=== PATIENT | female | born 1985 | race Caucasian/White ===

== ENCOUNTER → 2017-11-07 13:08 | Outpatient (CLI) | payer OTHER, SELFPAY ==
[2017-11-13 16:10] LABS: HPV Reflexed? NOT INDICATED
== END ==
PROVIDERS: Family Provider Nurse Practitioner; PCP Nurse Practitioner; Visit Provider Obstetrics & Gynecology
DX: Z12.4 Encounter for screening for malignant neoplasm of cervix (principal)
CPT/HCPCS: 88175; G0145

== ENCOUNTER → 2017-12-11 16:25 | Outpatient (CLI) | payer OTHER, SELFPAY ==
[2017-12-11 19:05] LABS: Chlamydia Trachomatis by PCR Negative (Negative); Neisserai gonorrhoeae by PCR Negative (Negative); Probe Check PASS; Sample Adequacy Control PASS; Specimen Processing Control PASS
== END ==
PROVIDERS: Visit Provider Obstetrics & Gynecology
DX: Z11.3 Encounter for screening for infections with a predominantly sexual mode of transmission (principal)
CPT/HCPCS: 87491; 87591

== ENCOUNTER → 2018-04-26 07:06 | Outpatient (CLI) | payer OTHER, SELFPAY ==
[2018-04-26 10:00] LABS: Internal QC Validated? YES +Cl - CLEAR BKGD; Pregnancy, Urine Negative Negative
== END ==
PROVIDERS: Family Provider Nurse Practitioner; PCP Nurse Practitioner; Visit Provider Nurse Practitioner Family
DX: L70.0 Acne vulgaris (principal); Z79.899 Other long term (current) drug therapy
CPT/HCPCS: 81025

== ENCOUNTER 2020-03-01 18:31 | Emergency (ER) | payer OTHER, SELFPAY ==
[2020-03-01 18:32] VITALS: BP 139/81; PULSE 103; RESP 16; TEMP 36.6; O2SAT 99; BMI 21.2
--- NOTE | 2020-03-01 18:46 | ED.DCSUM_ITS ---
History of Present Illness Chief Complaint: Occup Expose Informant: Patient Onset: Today Narrative: Patient is a 34-year-old female with history of hypothyroid, anxiety, depression and GERD presenting with needlestick. 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 She put her left hand on the patient and surgical tool that was sticking out from the skin and had a sharp point punctured her skin. Patient did not realize it right away and continue to close up the patient. When she took her gloves off she was there is a small amount of blood just proximal to her nail bed. She then washed her hands with antiseptic as well as soap and water. The source patient had known history of hepatitis C and HIV. Patient denies any known history of any blood-borne pathogens. No other complaints or concerns at this time. Past Medical History - Allergies and Home Meds Allergies/Adverse Reactions: Allergies No Known Allergies Allergy (Verified 03/01/20 18:31) Primary Care Physician: Stefanie Aaron NP-C [Primary Care Provider] - Past Medical History: - - GERD, anxiety/depression, hypothyroid Lives: With Family Smoking Status: Never smoker Review of Systems General: Denies: Chills, Fever, Sweats Eyes: Denies: Visual changes - bilaterally, Diplopia ENT: Denies: Rhinorrhea, Sore throat Cardiovascular: Denies: Chest pain, Palpitations Respiratory: Denies: Dyspnea, Cough, Dyspnea on exertion Gastrointestinal: Denies: Abdominal pain, Nausea, Vomiting, Diarrhea, Melena, Hematochezia Genitourinary: Denies: Dysuria, Hematuria, Frequency Musculoskeletal: Denies: Back pain, Extremity Pain Skin: Reports: Abrasions - left long finger. Denies: Rash, Wounds Neurological: Denies: Headache, Weakness, Numbness Physical Exam Vital Signs/Narrative: Vital Signs Temp Pulse Resp BP Pulse Ox 03/01/20 18:32 97.8 F 103 H 16 139/81 H 99 Inital Vital Signs reviewed: Yes General: Well nourished, Well developed, No Acute Distress Head: Normocephalic, Atraumatic Eyes: Perrl, EOMI ENT: Moist mucous membranes, No rhinorrhea Neck: Supple, Nontender Cardiovascular: Regular rate, Regular rhythm, No murmurs Respiratory: No distress, CTA bilaterally, Chest nontender Abdomen: Soft, Nontender, Nondistended, Normal bowel sounds Back: Nontender, Normal Inspection Extremities: Nontender, No edema Skin: Normal color, No rash, - - Pinpoint superficial abrasion just proximal to the left long finger nailbed Neurological: Alert, Oriented x3, Cranial nerves II-XII grossly intact, Normal Strength, Normal Sensation Psychological: Normal affect, Normal Mood, Tearful Diagnostic/Tx/Re-eval - Medical Decision Making She is evaluated for needlestick injury. 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 The source patient has a known history of hepatitis C and HIV. Source patient protocol was followed per nursing staff on appropriate nursing floor. Baseline labs are drawn per protocol. Patient is started on Truvada and Isentress. She is given first dose in the emergency room. I did discuss the case with infectious disease on-call who agrees with this plan of care for 4-week course and to follow-up in 2 weeks with him. She will follow-up with infectious disease as well as corporate care. Patient is counseled on signs and symptoms requiring return to the emergency room. Patient verbalizes agreement and understand this plan. Patient discharged home in stable and improved condition. ED Disposition - Plan for ED Patient: Disposition: Home or Assisted Living Diagnosis: Needle stick injury of finger Instructions: ED NEEDLE STICK Health Care Worker Prescriptions: Raltegravir Potassium [Isentress] 400 mg PO BID #56 tab [facility] Status: [id number] Emtricitabine/Tenofovir (Tdf) [Truvada 200 mg-300 mg Tablet] 1 ea PO DAILY #28 tab Transmission Status: Pending to [facility] Referrals: Stefanie Aaron NP-C [Primary Care Provider] - Sandro Barbour MD [STAFF PHYSICIAN] - [facility] [GROUP OF PHYSICIANS] - Additional Instructions: Follow-up with infectious disease in 2 weeks. Please also follow-up with either corporate care or another Workmen's Compensation provider of your choice.
[2020-03-01] MEDS: RALTEGRAVIR POTASSIUM 400 MG TABLET PO (19:12)
[2020-03-01] MEDS: EMTRICITABINE/TENOFOVIR 1 TABLET TABLET PO (19:13)
[2020-03-01 19:15] VITALS: RESP 16
[2020-03-01 19:55] LABS: Anion Gap 4 (5-15); BUN 13 mg/dL (7-18); BUN/Creat Ratio 13.8 RATIO (10-20); Calcium,Total 8.9 mg/dL (8.5-10.1); Chloride 103 mmol/L (98-107); Creatinine, Serum 0.94 mg/dL (0.55-1.02); EST Glomerular Filtration Rate 72 mL/min (>60); Est Glom Filt Rate - Afr Amer 87 mL/min (>60); Estimated Creatinine Clearance 84.54 ml/min; Glucose 89 mg/dL (74-106); Potassium 3.3 mmol/L (3.5-5.1); Sodium Level 137 mmol/L (136-145)
[2020-03-01 20:50] LABS: HIV - WCH Non-Reactive (Nonreactive); Hepatitis B Surface Antibody Reactive; Hepatitis B Surface Antigen Non-Reactive (Nonreactive); Hepatitis C Antibody Non-Reactive (Nonreactive)
== END 2020-03-01 19:15 | disposition home or self-care (01) ==
PROVIDERS: Emergency Provider Emergency Medicine; PCP Nurse Practitioner
DX: S61.233A Puncture wound without foreign body of left middle finger without damage to nail, initial encounter (principal); S60.413A Abrasion of left middle finger, initial encounter; Z77.21 Contact with and (suspected) exposure to potentially hazardous body fluids; W46.1XXA Contact with contaminated hypodermic needle, initial encounter; Y93.F9 Activity, other caregiving; Y92.9 Unspecified place or not applicable; Y99.0 Civilian activity done for income or pay; E03.9 Hypothyroidism, unspecified; K21.9 Gastro-esophageal reflux disease without esophagitis; F32.9 Major depressive disorder, single episode, unspecified; F41.9 Anxiety disorder, unspecified; Z79.899 Other long term (current) drug therapy
CPT/HCPCS: 80048; 86703; 86706; 86803; 87340; 99283

== ENCOUNTER → 2020-03-31 11:41 | Outpatient (CLI) | payer OTHER, SELFPAY ==
[2020-03-01 18:32] VITALS: BMI 21.2
[2020-03-31 13:39] LABS: HIV - WCH Non-Reactive (Nonreactive); Hepatitis C Antibody Non-Reactive (Nonreactive)
== END ==
LOC: MTLAB 11:45 → LAB 04-01 07:05
PROVIDERS: PCP Nurse Practitioner; Referring Provider Internal Medicine Infectious Disease; Visit Provider Internal Medicine Infectious Disease
DX: Z77.21 Contact with and (suspected) exposure to potentially hazardous body fluids (principal); T14.90XA Injury, unspecified, initial encounter; W46.1XXA Contact with contaminated hypodermic needle, initial encounter; Y93.9 Activity, unspecified; Y92.9 Unspecified place or not applicable; Y99.9 Unspecified external cause status
CPT/HCPCS: 36415; 86703; 86803

== ENCOUNTER → 2020-06-03 13:44 | Outpatient (CLI) | payer OTHER, SELFPAY ==
[2020-06-03 15:29] LABS: HIV - WCH Non-Reactive (Nonreactive); Hepatitis C Antibody Non-Reactive (Nonreactive)
== END ==
PROVIDERS: PCP Nurse Practitioner; Referring Provider Internal Medicine Infectious Disease; Visit Provider Internal Medicine Infectious Disease
DX: Z77.21 Contact with and (suspected) exposure to potentially hazardous body fluids (principal); T14.90XA Injury, unspecified, initial encounter; W46.1XXA Contact with contaminated hypodermic needle, initial encounter; Y93.9 Activity, unspecified; Y92.9 Unspecified place or not applicable; Y99.9 Unspecified external cause status
CPT/HCPCS: 36415; 86703; 86803

== ENCOUNTER → 2020-10-13 | Outpatient (CLI) | payer OTHER, SELFPAY ==
[2020-10-18 15:52] LABS: HPV Reflexed? NOT INDICATED
== END | disposition home or self-care (01) ==
LOC: LABSPEC 17:05
PROVIDERS: PCP Nurse Practitioner; Visit Provider Obstetrics & Gynecology
DX: Z12.4 Encounter for screening for malignant neoplasm of cervix (principal)
CPT/HCPCS: 88175; G0145

== ENCOUNTER → 2022-10-31 | Outpatient (CLI) | payer OTHER, SELFPAY ==
[2022-10-31 18:16] LABS: Estradiol 96.8 pg/mL; Follicle Stimulating Hormone 7.3 mIU/mL; Luteinizing Hormone 5.7 mIU/mL; Prolactin 11.9 ng/mL
[2022-10-31 20:09] LABS: Progesterone Level < 0.21 ng/mL (See Comment)
== END | disposition home or self-care (01) ==
LOC: WOBLAB 16:24
PROVIDERS: PCP Nurse Practitioner; Visit Provider Student in an Organized Health Care Education/Training Program
DX: N93.9 Abnormal uterine and vaginal bleeding, unspecified (principal)
CPT/HCPCS: 36415; 82670; 83001; 83002; 84144; 84146

== ENCOUNTER → 2022-11-24 | Outpatient (CLI) | payer OTHER, SELFPAY ==
--- NOTE | 2022-11-24 10:45 | MRI_ITS ---
HISTORY: Benign pituitary neoplasm. Abnormality of pituitary seen on previous CT brain at outside facility. Chronic frontal headaches. TECHNIQUE: Multiplanar and multisequence MR images of the brain were obtained before and after the intravenous administration of 13 mL Clariscan. 364 images. COMPARISON: None. FINDINGS: PITUITARY GLAND: 4 x 5 x 5 mm mildly T1 hyperintense and hypoenhancing lobulated lesion in the central pituitary gland with slight suprasellar extension and abutment of the pituitary stalk. Normal position of the posterior pituitary bright spot. No mass effect on the optic chiasm. No cavernous sinus invasion. BRAIN PARENCHYMA: No significant signal abnormality or other enhancing lesion in the brain parenchyma. No abnormal focus of restricted diffusion. CSF SPACES: Right lateral ventricle larger than the left, likely anatomic variant. Cerebral ventricles, cortical sulci, and other extra-axial CSF spaces otherwise within normal limits in size for age. No significant midline shift or other mass effect.No extra-axial fluid collection. VASCULAR SYSTEM: Major intracranial flow voids are maintained. PARANASAL SINUSES AND MASTOID AIR CELLS: No significant air fluid levels. ORBITS: Symmetric contents. MRI/Brain W/WO Contrast IMPRESSION: 5 mm hypoenhancing pituitary lesion with mild T1 hyperintensity, most likely pituitary microadenoma with a hemorrhagic component. Electronically Signed: Shavon Pierre MD at 11:47 EDT ,
== END | disposition home or self-care (01) ==
PROVIDERS: PCP Family Medicine; Referring Provider Internal Medicine Endocrinology, Diabetes & Metabolism; Visit Provider Internal Medicine Endocrinology, Diabetes & Metabolism
DX: D35.2 Benign neoplasm of pituitary gland (principal)
CPT/HCPCS: 70553; A9575

== ENCOUNTER → 2022-12-15 | Outpatient (CLI) | payer OTHER, SELFPAY ==
--- NOTE | 2022-12-15 18:08 | MRI_ITS ---
STUDY: EXAMINATION - MRV BRAIN WITHOUT CONTRAST REASON FOR EXAM: Female, 37 years old. MIGRAINE HEADACHE-chronic TECHNIQUE: 3D [id number] (TOF) imaging was performed in a 1.5 jessica MRI scanner. COMPARISON: None. FINDINGS: Normal flow within the superior sagittal sinus. Normal flow within the superficial cortical veins. Normal flow within the paired internal cerebral veins, vein of Bandar and straight sinus. Normal flow within the bilateral transverse and sigmoid sinuses. Normal flow within the bilateral jugular bulbs. MRI/MRV Head Without Contrast IMPRESSION: Normal unenhanced MRV of the brain. Electronically Signed: Antonio Coffman MD at 23:28 EDT ,
== END | disposition home or self-care (01) ==
PROVIDERS: PCP Family Medicine
DX: G43.909 Migraine, unspecified, not intractable, without status migrainosus (principal)
CPT/HCPCS: 70544

== ENCOUNTER → 2023-07-03 | Outpatient (CLI) | payer OTHER, SELFPAY ==
--- NOTE | 2023-07-03 15:43 | MRI_ITS ---
STUDY: MRI BRAIN WITH AND WITHOUT CONTRAST REASON FOR EXAM: Female, 37 years old. ATTENTION PITUITARY TECHNIQUE: Standardized multiplanar fat and water weighted pulse sequences were obtained. IV 13ml clariscan was administered for the contrast portion of the examination. COMPARISON: November 24, 2022 FINDINGS: Ventricular asymmetry likely normal developmental variant. Normal white matter tracts of the supratentorial brain. Normal bilateral basal ganglia. Normal thalami. There is no extra-axial fluid accumulation. Normal flow voids within the major intracranial circulation suggesting patency by spin echo criteria. Normal venous enhancement. There is no enhancing intra-axial or extra-axial abnormality. There is a small central hypoenhancing nodule in the pituitary measuring approximately 5.7 x 6.2 mm abutting the infundibulum. Normal, optic chiasm and hypothalamus. Normal tectal plate and pineal gland. Normal midbrain, marly and medulla. Normal cerebellum. Normal basal cisterns. Normal bilateral temporal bones. Normal bilateral internal auditory canals. No demonstrated orbital abnormality, within the constraints of a routine brain study. Normal visualized paranasal sinuses. Normal calvarium and skull base. Normal visualized soft tissue structures. Normal visualized upper cervical spine. The pituitary nodule has increased minimally in size since prior study MRI/Brain W/WO Contrast IMPRESSION: Findings consistent with pituitary microadenoma with minimal increase in size since prior exam Electronically Signed: Rudy Hoffmann MD at 20:09 EST ,
== END | disposition home or self-care (01) ==
LOC: MRI 15:36
PROVIDERS: PCP Family Medicine; Referring Provider Internal Medicine Endocrinology, Diabetes & Metabolism; Visit Provider Internal Medicine Endocrinology, Diabetes & Metabolism
DX: R51.9 Headache, unspecified (principal); D35.2 Benign neoplasm of pituitary gland
CPT/HCPCS: 70553; A9575

== ENCOUNTER → 2025-06-24 | Outpatient (CLI) | payer OTHER, SELFPAY ==
[2025-06-27 15:08] LABS: HPV APTIMA, High Risk Negative (Negative)
== END | disposition home or self-care (01) ==
LOC: LABSPEC 16:18
PROVIDERS: PCP Family Medicine; Visit Provider Nurse Practitioner Family
DX: Z12.4 Encounter for screening for malignant neoplasm of cervix (principal)
CPT/HCPCS: 87624; 88175; G0145